=== PATIENT | female | born 1950 | race Caucasian/White ===

== ENCOUNTER → 2016-09-06 | Outpatient (CLI) | payer OTHER ==
[~2016-09-06] MED LIST: BAYER PLUS325 MG PO; HYDROCHLOROTHIA25 MG PO; LOPRESSOR50 MG PO; NORVASC10 MG; NORVASC5 MG PO; OS CAL PO; PRINIVIL10 MG PO; ZOCOR10 MG PO; [UNRECOGNIZED DRUG - OTHER] PO
[2016-09-06 09:57] LABS: EST GLOM FILT AFRICAN AMERICAN > 60 ml/min
== END | disposition home or self-care (01) ==
LOC: LAB 09:20 → CT 10:00
PROVIDERS: Internal Medicine
DX: R22.1 Localized swelling, mass and lump, neck (principal)

== ENCOUNTER → 2017-03-14 | Outpatient (CLI) | payer OTHER ==
[2017-03-14 11:14] LABS: ACT PARTIAL THROMBO TIME 24.7 SECONDS (20.8-31.5)
[2017-03-14 11:27] LABS: BUN 25 mg/dl (7-24); CHLORIDE 108 mmol/L (98-107); POTASSIUM 3.6 mmol/L (3.5-5.1); SODIUM 142 mmol/L (136-145)
== END | disposition home or self-care (01) ==
LOC: SDC 11:00 → EDSTATUS 11:00
PROVIDERS: Internal Medicine
DX: K11.1 Hypertrophy of salivary gland (principal); R79.1 Abnormal coagulation profile

== ENCOUNTER → 2017-06-06 | Outpatient (CLI) | payer OTHER | LOC: ORTHO 02:48 | DX: M16.11 Unilateral primary osteoarthritis, right hip (principal) ==

== ENCOUNTER → 2017-10-30 | Outpatient (CLI) | payer OTHER | END | disposition home or self-care (01) | LOC: MAMMO 08:15 | DX: Z12.31 Encounter for screening mammogram for malignant neoplasm of breast (principal) ==

== ENCOUNTER → 2018-11-04 | Outpatient (CLI) | payer OTHER | END | disposition home or self-care (01) | LOC: US 12:30 | DX: I70.202 Unspecified atherosclerosis of native arteries of extremities, left leg (principal); I10 Essential (primary) hypertension ==

== ENCOUNTER 2019-04-12 09:42 | Inpatient (IN) | payer OTHER ==
[2019-04-12] VITALS (11 sets, daily range): BP systolic 97–138; BP diastolic 68–93
[~2019-04-12] VITALS: Ht 167.6 cm; Wt 78.2 kg
[~2019-04-12 09:42] MED LIST changes: +ASPIR LOW81 MG PO; -BAYER PLUS325 MG PO; -LOPRESSOR50 MG PO; +METOPROLOL SUCC50 M1 PO
[2019-04-12 10:18] LABS: BASO # 0.1 10*3/uL (0.0-0.1); BASO % 0.4 % (0.0-1.0); EOS % 0.2 % (1.0-4.0); HEMATOCRIT 49.2 % (37.0-47.0); HEMOGLOBIN 16.5 g/dl (12.0-16.0); LYMPH # 1.2 10*3/uL (1.3-4.4); LYMPH % 8.8 % (27.0-41.0); MEAN CORPUSCULAR HGB 31.2 pg (27.0-31.0); MEAN CORPUSCULAR HGB CONC 33.5 g/dl (33.0-37.0); MONO # 0.6 10*3/uL (0.1-1.0); MONO % 4.2 % (3.0-9.0); NEUT # 11.9 10*3/uL (2.3-7.9); NEUT % 85.7 % (47.0-73.0); PLATELET COUNT AUTOMATED 268 10*3/uL (130-400); RED BLOOD COUNT 5.29 10*6/uL (4.10-5.10); RED CELL DISTRI WIDTH 14.2 % (0-14.5); WHITE BLOOD COUNT 13.9 10*3/uL (4.8-10.8)
--- NOTE | 2019-04-12 10:20 | NUR ---
IV TO LEFT ARM WOULD NOT FLUSH AND WAS BURNING PT I DC'D AND STARTED A IV IN RFA WITHOUT DIFFICULTY PT TOLERATED WELL.
[2019-04-12 10:24] LABS: ALBUMIN 3.6 gm/dl (3.1-4.5); ALKALINE PHOSPHATASE 83 U/L (45-117); BUN 26 mg/dl (7-24); CHLORIDE 105 mmol/L (98-107); CREATININE 0.96 mg/dL (0.55-1.02); POTASSIUM 3.4 mmol/L (3.5-5.1); SGOT/AST 18 IU/L (3-35); SGPT/ALT 43 U/L (12-78); SODIUM 137 mmol/L (136-145)
--- NOTE | 2019-04-12 10:24 | NUR ---
NOTIFIED BY LAB PTS LACTIC ACID 2.7. CAMPOS BURNETT NOTIFIED.
[2019-04-12 10:25] LABS: TROPONIN I 0.018 ng/ml (<0.045)
--- NOTE | 2019-04-12 10:26 | NUR ---
oxygen bumped up to 4l pulse ox 89-90 on 2 l
--- NOTE | 2019-04-12 10:35 | NUR ---
PT GIVEN URINE CUP AND IS AWARE WE SHAD URINE SAMPLE UNABLE TO PROVIDE ONE AT THIS TIME.
--- NOTE | 2019-04-12 11:02 | NUR ---
CARDIZEM BUMPED UP TO 10MG PT HEART RATE 120
[2019-04-12 11:25] LABS: ACT PARTIAL THROMBO TIME 29.2 SECONDS (20.0-32.1)
--- NOTE | 2019-04-12 11:50 | NUR ---
URINE OBTAINED AND SENT PT RESTING IN BED VOICES NO COMPLAINTS HAS SMALLL EXCORIATED/OPEN AREA TO LEFT UPPER THIGH/LOWER BUTTOCK. DOES NOT WANT IT PHOTOGRAPHED PER PT "ITS FROM MY "[employer]ANTIES" RUBBING IT WILL GO AWAY.
[2019-04-12 11:56] LABS: BILIRUBIN 1+ (NEGATIVE); BLOOD NEGATIVE (NEGATIVE); CLARITY CLOUDY (CLEAR); COLOR YELLOW (YELLOW); GLUCOSE NEGATIVE (NEGATIVE); KETONE NEGATIVE (NEGATIVE); LEUKO ESTERASE NEGATIVE (NEGATIVE); NITRITE NEGATIVE (NEGATIVE); SPECIFIC GRAVITY >= 1.030 (1.005-1.030)
[2019-04-12 12:11] LABS: BACTERIA 2+; MUCOUS 1+
--- NOTE | 2019-04-12 12:42 | NUR ---
PT RESTING IN BED VOICES NO COMPLAINTS CALL LIGHT IN REACH
--- NOTE | 2019-04-12 13:40 | NUR ---
A 68, admitted to 4E, under the services of CAROL Pelletier MD with a diagnosis of PLEURAL EFFUSION RIGHT, AFIB WITH RVR. Chief complaint is SOB. Patient arrived via ambulatory from ER. Monitor applied. Initial assessment completed. Vital signs taken and recorded. CAROL PELLETIER MD notified of admission to the unit. Orders received. See assessment for past medical history, medications and allergies. Patient and/or family oriented to unit. [address] visitation policy reviewed. Clothing/patient valuable form completed. SKIN INTACT RISA MARTINS
--- NOTE | 2019-04-12 13:45 | NUR ---
WA PT FLU AND PNEUMONIA VACCINATIONS ARE CURRENT
[2019-04-12] MEDS ORDERED: DILTIAZEM 24HR180 MG PO (13:49)
[2019-04-12] MEDS ORDERED: ELIQUIS5 M1 PO (13:50)
--- NOTE | 2019-04-12 14:58 | NUR ---
SPOKE TO DR HENNING REGARDING NEW PT CONSULT. ORDERS RECEIVED
--- NOTE | 2019-04-12 15:16 | NUR ---
PTS HOME MEDICATIONS VERIFIED. DR TATUM NOTIFIED
--- NOTE | 2019-04-12 16:40 | NUR ---
PT C/O "ALL OVER SHAKINESS." BP 112/86. HR 70-110 (STILL AFIB). PO2 88% ON 3L O2 NC. TURNED O2 UP TO 4L NC. PO2 WENT UP TO 93%. RESPS 24. DR DOOLEY NOTIFIED. ORDER RECEIVED FOR PO XANAX ONE TIME.
--- NOTE | 2019-04-12 19:00 | NUR ---
ADMINISTERED PO XANAX FOR ANXIETY AND PO NORCO FOR C/O LOWER BACK PAIN RATED 8/10. WILL MONITOR FOR EFFECTIVENESS
--- NOTE | 2019-04-12 22:12 | NUR ---
TITRATED CARDIZEM GTT DOWN TO 5/HR PER PROTOCOL. HR 79 PER CM. BP 131/76, MAP 86. PATIENT DENIES ANY DISCOMFORTS AT THIS TIME. NO S/S OF DISTRESS. CALL LIGHT IN REACH.
[2019-04-13 02:00] VITALS: BP 128/90
[2019-04-13 06:00] VITALS: BP 135/92
[2019-04-13 06:24] LABS: ALBUMIN 3.5 gm/dl (3.1-4.5); CHLORIDE 106 mmol/L (98-107); POTASSIUM 3.7 mmol/L (3.5-5.1); SODIUM 137 mmol/L (136-145)
[2019-04-13 06:31] LABS: ALKALINE PHOSPHATASE 80 U/L (45-117); BUN 25 mg/dl (7-24); CHOLESTEROL 133 mg/dL (<200); CREATININE 0.99 mg/dL (0.55-1.02); FREE T4 1.22 ng/dl (0.76-1.46); HDL CHOLESTEROL 47 mg/dl (40-60); LDL CHOLESTEROL 47 mg/dL (9-159); PHOSPHOROUS 3.1 mg/dL (2.5-4.9); SGOT/AST 15 IU/L (3-35); SGPT/ALT 41 U/L (12-78); TOTAL PROTEIN 6.8 gm/dL (6.4-8.2); TRIGLYCERIDES 197 mg/dl (<150); VLDL CHOLESTEROL 39 mg/dL (6-40)
[2019-04-13 06:42] LABS: BASO # 0.1 10*3/uL (0.0-0.1); BASO % 0.6 % (0.0-1.0); EOS # 0.1 10*3/uL (0.0-0.4); EOS % 0.9 % (1.0-4.0); HEMATOCRIT 48.3 % (37.0-47.0); HEMOGLOBIN 16.1 g/dl (12.0-16.0); LYMPH % 15.9 % (27.0-41.0); MEAN CORPUSCULAR HGB 31.3 pg (27.0-31.0); MEAN CORPUSCULAR HGB CONC 33.3 g/dl (33.0-37.0); MEAN PLATELET VOLUME 10.7 fl (9.6-12.3); MONO # 0.9 10*3/uL (0.1-1.0); MONO % 7.1 % (3.0-9.0); NEUT # 9.5 10*3/uL (2.3-7.9); NEUT % 74.7 % (47.0-73.0); PLATELET COUNT AUTOMATED 267 10*3/uL (130-400); RED BLOOD COUNT 5.14 10*6/uL (4.10-5.10); RED CELL DISTRI WIDTH 14.4 % (0-14.5); WHITE BLOOD COUNT 12.7 10*3/uL (4.8-10.8)
[2019-04-13 07:34] LABS: VITAMIN D, 25-HYDROXY 29.8 ng/mL (30-100)
[2019-04-13 08:00] VITALS: BP 128/80
[2019-04-13 10:00] VITALS: BP 130/90; BP 134/80
--- NOTE | 2019-04-13 10:00 | NUR ---
Account Executive Key Accounts in to talk to patient. Patient states lives at home with her . There are 5 steps in the home. Physician: Dr. Simone Amado [facility] Home health services: none Patient's level of ADLs: INDEPENDENT Patient has working utilities: yes DME: none Follow-up physician's appointment after d/c: she prefers to make her own follow up appt after discharge Does patient want to access PORTAL?: no Discharge plan discussed with patient. is at the bedside. She lives at home with her . She is independent in her ADLs and ambulation. Discussed home health care services and she denies any home needs at this time. When medically stable she will be discharged to home. Her will provide transportation on discharge. ADELINE SULLIVAN
[2019-04-13 11:01] LABS: ABG BASE EXCESS -0.8 mmol/L (-2.0-2.0); ABG HCO3 22.9 mmol/l (22-26); ABG O2 SATURATION 88.8 % (95-97); ARTERIAL BLOOD GAS PCO2 35.5 mmHg (35-45); ARTERIAL BLOOD GAS PH 7.422 (7.35-7.45); ARTERIAL BLOOD GAS PO2 54.6 mmHg (80-90)
[2019-04-13 12:00] VITALS: BP 134/80
[2019-04-13 14:00] VITALS: BP 138/84
--- NOTE | 2019-04-13 15:23 | NUR ---
Spoke to Remi cade [facility] regarding authorization to transfer patient to a high level of care. [facility] Brandy NPI # [id number]. Dr. Aaron Miller NPI # [id number]. ICD 10 I71.01. Ref # [id number]. Notified product steward and Susy at [facility] Med Call.
--- NOTE | 2019-04-13 15:25 | NUR ---
HOME O2 ASSESSMENT: PRE BP: 152/104, RR 108, RR 18, PULSE OX 96% ON ROOM AIR AT REST. AMBULATED PATIENT 2 FAIRLY BRISK LAPS IN HALLWAY, PULSE OX 91%-92% ON ROOM AIR THROUGHOUT AMBULATION. APPEARED TO TOLERATE WELL. POST BP: 145/104, HR 113, RR 20, PULSE OX 95% ON ROOM AIR AT REST. RN NOTIFIED. PATIENT DOES NOT QUALIFY FOR HOME O2.
--- NOTE | 2019-04-13 15:59 | NUR ---
PT LEFT FLOOR VIA STRETCHER IN THE CARE OF [employer] STAFF. PACKET WITH PT. REPORT CALLED TO DOLLY KIMBROUGH AT [facility]
== END 2019-04-13 16:00 | disposition short-term general hospital (02) | DRG 871 ==
LOC: ED 09:42 → 4E 12:56 → EDHOLD 12:56 → 4E 13:23
PROVIDERS: Emergency Medicine; Internal Medicine; Internal Medicine Critical Care Medicine; Nurse Practitioner Family; ADMIT Internal Medicine
DX: A41.9 Sepsis, unspecified organism (principal); J18.9 Pneumonia, unspecified organism; J44.0 Chronic obstructive pulmonary disease with (acute) lower respiratory infection; E66.2 Morbid (severe) obesity with alveolar hypoventilation; J44.1 Chronic obstructive pulmonary disease with (acute) exacerbation; E87.2 Acidosis; E87.1 Hypo-osmolality and hyponatremia; J98.11 Atelectasis; J90 Pleural effusion, not elsewhere classified; R65.20 Severe sepsis without septic shock; I71.2 Thoracic aortic aneurysm, without rupture; L89.891 Pressure ulcer of other site, stage 1; D75.1 Secondary polycythemia; E87.6 Hypokalemia; I48.91 Unspecified atrial fibrillation; Z72.0 Tobacco use; Z90.49 Acquired absence of other specified parts of digestive tract; Z90.710 Acquired absence of both cervix and uterus; Z82.49 Family history of ischemic heart disease and other diseases of the circulatory system; Z79.01 Long term (current) use of anticoagulants; Z79.82 Long term (current) use of aspirin; Z79.899 Other long term (current) drug therapy; Z91.041 Radiographic dye allergy status; Z82.3 Family history of stroke; Z83.3 Family history of diabetes mellitus; R73.9 Hyperglycemia, unspecified; R80.9 Proteinuria, unspecified; Z68.27 Body mass index [BMI] 27.0-27.9, adult; I11.9 Hypertensive heart disease without heart failure

== ENCOUNTER 2019-04-23 18:39 | Inpatient (IN) | payer OTHER ==
[~2019-04-23] VITALS: Ht 167.6 cm; Wt 77.6 kg
--- NOTE | ~2019-04-23 | EKG ---
[place], [place] ELECTROCARDIOGRAM REPORT NAME: LASHON SPENCER UNIT #: [id number] ROOM: 403 DOCTOR: KATRIN DRAFT REPORT BIRTHDATE: [birth year] [facility] Test Date: 2019-04-23 Test Time: 19:31:45 Pat Name: LASHON SPENCER Department: Room: 403 Gender: F Edi Architect: SS RESP : 1950 Requested By: ABEBE RIOS DNP Order Number: [id number] Reading MD: Fantasma Garcia MD Measurements Intervals [place] Rate: 79 P: [place]: QRS: 64 QRSD: 99 T: 206 QT: 346 QTc: 397 Interpretive Statements Atrial fibrillation Repol abnrm suggests inferior and lateral ischemia, lateral leads Possible digoxin effect Compared to ECG 04/12/2019 15:30:53 Early repolarization now present Possible ischemia now present Electronically Signed On 05-02-2019 5:27:23 PST by Fantasma Garcia MD CM:EKGRPT:ELECTROCARDIOGRAM REPORT 30 0527 ABEBE RIOS DNP EPIPHANY DRAFT REPORT ABEBE RIOS DNP
[~2019-04-23 18:39] MED LIST changes: +DILTIAZEM 24HR180 MG PO; +ELIQUIS5 M1 PO
[2019-04-23 18:40] VITALS: BP 134/73
[2019-04-23 19:13] LABS: BASO # 0.1 10*3/uL (0.0-0.1); BASO % 0.5 % (0.0-1.0); EOS # 0.4 10*3/uL (0.0-0.4); EOS % 3.6 % (1.0-4.0); HEMATOCRIT 49.2 % (37.0-47.0); HEMOGLOBIN 16.2 g/dl (12.0-16.0); LYMPH # 1.7 10*3/uL (1.3-4.4); LYMPH % 15.7 % (27.0-41.0); MEAN CELL VOLUME 93.7 fl (81.0-99.0); MEAN CORPUSCULAR HGB 30.9 pg (27.0-31.0); MEAN CORPUSCULAR HGB CONC 32.9 g/dl (33.0-37.0); MONO # 0.9 10*3/uL (0.1-1.0); MONO % 8.3 % (3.0-9.0); NEUT # 7.8 10*3/uL (2.3-7.9); NEUT % 71.3 % (47.0-73.0); PLATELET COUNT AUTOMATED 242 10*3/uL (130-400); RED BLOOD COUNT 5.25 10*6/uL (4.10-5.10)
[2019-04-23 19:24] LABS: ACT PARTIAL THROMBO TIME 27.4 SECONDS (20.0-32.1)
[2019-04-23 19:30] VITALS: BP 142/95
[2019-04-23 19:35] LABS: ALBUMIN 3.2 gm/dl (3.1-4.5); ALKALINE PHOSPHATASE 101 U/L (45-117); BUN 29 mg/dl (7-24); CHLORIDE 110 mmol/L (98-107); CREATININE 1.05 mg/dL (0.55-1.02); LIPASE 126 U/L (73-393); POTASSIUM 3.9 mmol/L (3.5-5.1); SGOT/AST 13 IU/L (3-35); SGPT/ALT 23 U/L (12-78); SODIUM 141 mmol/L (136-145); TOTAL PROTEIN 6.6 gm/dL (6.4-8.2)
[2019-04-23 19:37] LABS: TROPONIN I < 0.015 ng/ml (<0.045)
[2019-04-23 20:00] VITALS: BP 135/102
[2019-04-23 20:30] VITALS: BP 158/98
[2019-04-23 21:00] VITALS: BP 133/80
[2019-04-23 21:40] VITALS: BP 152/91
--- NOTE | 2019-04-23 21:40 | NUR ---
A 68, admitted to , under the services of CAROL Pelletier MD with a diagnosis of AFIB, DYSPNEA, SUBTHERPEUTIC. Chief complaint is RASH. Patient arrived via bed from ER. Monitor applied. Initial assessment completed. Vital signs taken and recorded. CAROL PELLETIER MD notified of admission to the unit. Orders received. See assessment for past medical history, medications and allergies. Patient and/or family oriented to unit. [address] visitation policy reviewed. Clothing/patient valuable form completed. ALEXIS URBINA
--- NOTE | 2019-04-23 22:10 | NUR ---
PT STILL HAS RED BLOTCHY RASH COVERING BODY EXCLUDING FACE. PT NOT C/O ITCHING OR ANY OTHER DISTRESS AT THIS TIME.
[2019-04-24] VITALS: BP 164/97
--- NOTE | 2019-04-24 02:41 | NUR ---
DR REYNOLDS NOTIFIED OF CRITICAL PTT
--- NOTE | 2019-04-24 02:45 | NUR ---
PT'S HEPARIN DRIP HELD PER ORDER.
--- NOTE | 2019-04-24 03:45 | NUR ---
HEPARIN DRIP REINITIATED PER ORDER. NOW RUNNING AT 15 UNITS/ 11ML/ HR
--- NOTE | 2019-04-24 07:21 | NUR ---
24 HR chart check completed.
[2019-04-24 08:00] VITALS: BP 148/82
[2019-04-24 08:27] LABS: ACT PARTIAL THROMBO TIME 49.7 SECONDS (20.0-32.1)
--- NOTE | 2019-04-24 09:00 | NUR ---
SITTING IN BED WATCHING TV WITH NO DISTRESS NOTED. RESPIRATIONS EASY. LUNGS DIMINISHED, CLEAR. PULSE OX 94% RA. INFREQUENT COUGH. HEPARIN DRIP INFUSING PER ORDER. CALL LIGHT WITHIN REACH. NO VOICED COMPLAINTS
[2019-04-24] MEDS ORDERED: CARTIA XT240 MG PO (10:01)
[2019-04-24] MEDS ORDERED: BISOPROLOL FUMA10 MG PO (10:02)
[2019-04-24] MEDS ORDERED: BREO ELLIPTA 11 EACH INH (10:02)
[2019-04-24] MEDS ORDERED: PROAIR HFA8.5 GM INH (10:02)
[2019-04-24] MEDS ORDERED: LOSARTAN POTASS50 M1 PO (10:02)
[2019-04-24] MEDS ORDERED: DIGITEK125 MCG PO (10:03)
--- NOTE | 2019-04-24 11:15 | NUR ---
AMBULATING HALLWAY WITH . NO DISTRESS NOTED
[2019-04-24 12:00] VITALS: BP 141/94
--- NOTE | 2019-04-24 13:00 | NUR ---
RESTING IN BED WITH EYES CLOSED. RESPIRATIONS EASY. HEPARIN DRIP MAINTAINED.
[2019-04-24 16:00] VITALS: BP 136/83
--- NOTE | 2019-04-24 18:23 | NUR ---
REQUESTED AND RECEIVED TYLENOL PER PRN ORDER FOR COMPLAINTS OF HEADACHE RATING A 5. CALL LIGHT WITHIN REACH. WILL MONITOR FOR EFFECTIVENESS
--- NOTE | 2019-04-24 19:10 | NUR ---
AMBULATING HALLWAY WITH . NO DISTRESS NOTED. NO VOICED COMPLAINTS.
[2019-04-24 20:00] VITALS: BP 158/95
[2019-04-25] VITALS: BP 143/71
[2019-04-25 06:15] LABS: HEMATOCRIT 47.4 % (37.0-47.0); HEMOGLOBIN 15.4 g/dl (12.0-16.0); MEAN CORPUSCULAR HGB 30.9 pg (27.0-31.0); MEAN CORPUSCULAR HGB CONC 32.5 g/dl (33.0-37.0); MEAN PLATELET VOLUME 10.6 fl (9.6-12.3); PLATELET COUNT AUTOMATED 253 10*3/uL (130-400); RED BLOOD COUNT 4.99 10*6/uL (4.10-5.10)
[2019-04-25 06:21] LABS: BUN 21 mg/dl (7-24); CHLORIDE 111 mmol/L (98-107); CREATININE 0.84 mg/dL (0.55-1.02); POTASSIUM 3.3 mmol/L (3.5-5.1); SODIUM 141 mmol/L (136-145)
[2019-04-25 06:29] LABS: INTERNATIONAL NORM RATIO 1.6 (2.0-3.5)
[2019-04-25 06:32] LABS: ACT PARTIAL THROMBO TIME 94.1 SECONDS (20.0-32.1)
--- NOTE | 2019-04-25 06:35 | NUR ---
ATTEMPTED TO CALL RESIDENT REGARDING CRITICAL APTT RESULT. AWAITING CALL BACK. HEPARIN GTT CURRENTLY ON HOLD.
--- NOTE | 2019-04-25 06:38 | NUR ---
DR REYNOLDS NOTIFIED OF CRITICAL LAB RESULT.
--- NOTE | 2019-04-25 07:20 | NUR ---
24 HR chart check completed.
[2019-04-25 07:23] LABS: PLATELET SUFFICIENCY NORMAL (NORMAL); TOTAL CELLS COUNTED 100 #CELLS
[2019-04-25 08:00] VITALS: BP 150/88
--- NOTE | 2019-04-25 08:04 | NUR ---
RESTING IN BED WITH NO DISTRESS NOTED. RESPIRATIONS EASY. LUNGS DIMINISHED, CLEAR. PULSE OX 96% RA. INFREQUENT COUGH. MEDICATED WITH NORCO PER PRN ORDER FOR C/O HEADACHE RATING AN 8. RASH NOTED TO TORSO. HEPARIN INFUSING PER ORDER. CALL LIGHT WITHIN REACH
--- NOTE | 2019-04-25 09:00 | NUR ---
SITTING AT BEDSIDE EATING. STATES RELIEF FROM EARLIER NORCO. CAR LIGHT WITHIN REACH. NO FURTHER VOICED COMPLAINTS
--- NOTE | 2019-04-25 11:00 | NUR ---
AMBULATING HALLWAY WITH . NO DISTRESS NOTED
[2019-04-25 12:00] VITALS: BP 155/90
--- NOTE | 2019-04-25 13:00 | NUR ---
AMBULATING HALLWAY WITH
[2019-04-25 16:00] VITALS: BP 146/55
--- NOTE | 2019-04-25 16:16 | NUR ---
REQUESTED AND RECEIVED TYLENOL PER PRN ORDER FOR COMPLAINTS OF HEADACHE RATING A 5. CALL LIGHT WITHIN REACH. YEYO MONITOR FOR EFFECTIVENESS
--- NOTE | 2019-04-25 17:00 | NUR ---
STATES RELIEF FROM EARLIER TYLENOL. RESPIRATIONS EASY. HEPARIN DRIP MAINTAINED. CALL LIGHT WITHIN REACH. NO FURTHER VOICED COMPLAINTS
[2019-04-25 20:00] VITALS: BP 154/95
--- NOTE | 2019-04-25 20:15 | NUR ---
PT C/O HEADACHE, RATES PAIN 6 ON PAIN SCALE 0-10. MEDICATED WITH TYLENOL PO PER PRN ORDER, SEE MAR. TOLERATED ROUTINE MED WITH NO PROBLEM. CALL LIGHT IN REACH. SEE SHIFT ASSESSMENT.
[2019-04-25 20:19] VITALS: BP 150/86
--- NOTE | 2019-04-25 21:10 | NUR ---
PT RESTING IN BED. STATES PAIN MEDICATION IS HELPING. CALL LIGHT IN REACH.
[2019-04-26] VITALS: BP 148/90
--- NOTE | 2019-04-26 | NUR ---
PT RESTING IN BED. HEPARIN INFUSING WITH NO PROBLEM. NO C/O AT THIS TIME. PT AMBULATORY TO BATHROOM AND BACK TO BED. CALL LIGHT IN REACH. SEE SHIFT ASSESSMENT.
--- NOTE | 2019-04-26 03:30 | NUR ---
IV started right forearm with #22 angiocath after 1 attempts. The IV site was prepped with Chloraprep. Heparin lock attached. Sterile dressing applied. Patient tolerated precedure well. Procedure performed according to [facility] policy & procedure. PT PULLED IV SITE OUT WHILE SLEEPING TO LEFT AC. BLODD IN PT AND BED. SITE STOPPED BLEEDING. PT CLEANED UP AND BED CHANGED. HEPARIN INFUSING IN LEFT HAND. CALL LIGHT IN REACH. SARINA HUGHES R
--- NOTE | 2019-04-26 05:35 | NUR ---
PT C/O HEADACHE STATES SHE IS SHORT OF BREATH. PULSE OX 94%RA. RESPIRATORY ON THE FLOOR TO DO BREATHING TX. MEDICATED WITH NORCO PO PER PRN ORDER, SEE EMAR. CALL LIGHT IN REACH.
[2019-04-26 06:00] LABS: HEMATOCRIT 48.9 % (37.0-47.0); HEMOGLOBIN 16.1 g/dl (12.0-16.0); MEAN CELL VOLUME 92.6 fl (81.0-99.0); MEAN CORPUSCULAR HGB 30.5 pg (27.0-31.0); MEAN CORPUSCULAR HGB CONC 32.9 g/dl (33.0-37.0); MEAN PLATELET VOLUME 10.3 fl (9.6-12.3); PLATELET COUNT AUTOMATED 258 10*3/uL (130-400); RED BLOOD COUNT 5.28 10*6/uL (4.10-5.10); WHITE BLOOD COUNT 21.3 10*3/uL (4.8-10.8)
[2019-04-26 06:19] LABS: BUN 25 mg/dl (7-24); CHLORIDE 108 mmol/L (98-107); CREATININE 0.86 mg/dL (0.55-1.02); POTASSIUM 3.3 mmol/L (3.5-5.1); SODIUM 141 mmol/L (136-145)
--- NOTE | 2019-04-26 06:30 | NUR ---
SITTING UP AT SIDE OF BED. RESP-EASY AND REGULAR. MEDICATGINO EFFECTIVE. CALL LIGHT IN REACH.
[2019-04-26 08:00] VITALS: BP 162/100
[2019-04-26 08:09] LABS: TOTAL CELLS COUNTED 100 #CELLS
[2019-04-26 08:10] LABS: PLATELET SUFFICIENCY NORMAL (NORMAL)
--- NOTE | 2019-04-26 10:00 | NUR ---
LEFT ANTECUBITAR BLEEDING WHERE IV WAS REMOVED ON RESEARCH SPECIALIST. COMPRESSION DRESSING APPLIED AT THE SITE. PT DENIES ANY OTHER NEEDS. CALL LIGHT IN REACH.
--- NOTE | 2019-04-26 10:30 | NUR ---
Marine Consultant in to talk to patient. Patient states lives at home with her . There are 5 steps in the home. Physician: Dr. Simone Amado [facility] Home health services: none Patient's level of ADLs: INDEPENDENT Patient has working utilities: yes DME: O2 @ 4L [place] at [place], O2 supplier [employer] Follow-up physician's appointment after d/c: she prefers to make her own follow up appt after discharge Does patient want to access PORTAL?: no Discharge plan discussed with patient. is at the bedside. She lives at home with her . She is independent in her ADLs and ambulation. Discussed home health care services and she denies any home needs at this time. When medically stable she will be discharged to home. Her will provide transportation on discharge. ADELINE SULLIVAN
[2019-04-26 11:50] VITALS: BP 160/100
--- NOTE | 2019-04-26 11:50 | NUR ---
CALLED 'S OFFICE FOR ACCURATE MED LIST BECAUSE PATIENT STATES THAT SHE TAKES HCTZ & NORVASC NORMALLY. WAITING ON OFFICE TO FAX LIST. NOTIFIED THAT PATIENT'S BP IS ELEVATED 160/100.
[2019-04-26 16:00] VITALS: BP 147/94
--- NOTE | 2019-04-26 19:52 | NUR ---
24 HR chart check completed.
[2019-04-26 20:00] VITALS: BP 142/90; BP 147/94
--- NOTE | 2019-04-26 21:00 | NUR ---
RESTING IN BED. RESPIRATIONS EASY. LUNGS DIMINISHED, CLEAR. PULSE OX 93% RA, O2 PRESENT AT BEDSIDE FOR PRN USE. INFREQUENT COUGH. DRESSING CHANGED TO LAC SITE CONTINUES TO BLEED - PRESSURE DRESSING APPLIED. +1 PITTING BLE EDEMA. HEPARIN INFUSING PER ORDER. CALL LIGHT WITHIN REACH. NO VOICED COMPLAINTS
[2019-04-27] VITALS: BP 150/92
--- NOTE | 2019-04-27 | NUR ---
SITTING AT BEDSIDE PLAYING ON IPAD. NO DISTRESS NOTED. RESPIRATIONS EASY. HEPARIN MAINTAINED. CALL LIGHT WITHIN REACH. NO VOICED COMPLAINTS
--- NOTE | 2019-04-27 01:00 | NUR ---
SLEEPING. NO DISTRESS NOTED. RESPIRATIONS EASY.
--- NOTE | 2019-04-27 06:00 | NUR ---
RESTED THROUGHOUT NIGHT WITH NO DISTRESS NOTED. RESPIRATIONS EASY. HEPARIN MAINTAINED. CALL LIGHT WITHIN REACH. NO VOICED COMPLAINTS THIS SHIFT
[2019-04-27 06:11] LABS: HEMATOCRIT 48.5 % (37.0-47.0); HEMOGLOBIN 16.1 g/dl (12.0-16.0); MEAN CORPUSCULAR HGB 30.6 pg (27.0-31.0); MEAN CORPUSCULAR HGB CONC 33.2 g/dl (33.0-37.0); MEAN PLATELET VOLUME 10.3 fl (9.6-12.3); PLATELET COUNT AUTOMATED 269 10*3/uL (130-400); RED BLOOD COUNT 5.27 10*6/uL (4.10-5.10); WHITE BLOOD COUNT 21.7 10*3/uL (4.8-10.8)
[2019-04-27 06:14] LABS: BUN 27 mg/dl (7-24); CHLORIDE 105 mmol/L (98-107); CREATININE 0.88 mg/dL (0.55-1.02); POTASSIUM 3.4 mmol/L (3.5-5.1); SODIUM 138 mmol/L (136-145)
[2019-04-27 06:41] LABS: INTERNATIONAL NORM RATIO 4.5 (2.0-3.5)
[2019-04-27 06:44] LABS: ACT PARTIAL THROMBO TIME 78.3 SECONDS (20.0-32.1)
--- NOTE | 2019-04-27 06:45 | NUR ---
HEPARIN DRIP ADJUSTED PER PROTOCOL
[2019-04-27 07:23] LABS: PLATELET SUFFICIENCY NORMAL (NORMAL); TOTAL CELLS COUNTED 100 #CELLS
--- NOTE | 2019-04-27 07:43 | NUR ---
DR CALIX CALLED WITH INR & PTT RESULTS. ORDERS TO STOP HEPARIN & COUMADIN
[2019-04-27 08:00] VITALS: BP 140/90
[2019-04-27 08:01] VITALS: BP 150/60
--- NOTE | 2019-04-27 09:29 | NUR ---
Shift chart check completed.
--- NOTE | 2019-04-27 09:50 | NUR ---
DR HARGROVE HERE AND SEEING THE PATIENT FOR DR DOOLEY. OK TO DISCHARGE HOME - WILL TAKE 3 MG TOMORROW THEN SEE DR DOOLEY 04/30/19
--- NOTE | 2019-04-27 11:31 | NUR ---
AMBULATING IN COATS WITHOUT DIFFICULTY. AWAITING DISCHARGE ORDERS
[2019-04-27] MEDS ORDERED: METOPROLOL TART50 M1 PO (11:52)
[2019-04-27] MEDS ORDERED: WARFARIN SOD2 MG PO (11:52)
[2019-04-27] MEDS ORDERED: MEDROL DOSEPAK4 MG PO (11:52)
--- NOTE | 2019-04-27 12:38 | NUR ---
Discharge instructions reviewed with patient/family. Patient receptive and verbalizes understanding. Follow-up care arranged. Written instructions given to patient/family. Hep Lock discontinued. Site asymptomatic. Pressure applied. Sterile dressing applied. ALBINO WHYTE
--- NOTE | 2019-04-27 13:08 | NUR ---
TAKEN OUT WITH BELONGINGS & DC INSTRUCTIONS
== END 2019-04-27 13:08 | disposition home or self-care (01) | DRG 607 ==
LOC: ED 18:39 → EDHOLD 19:52 → 4E 19:52
PROVIDERS: Internal Medicine Nephrology; Nurse Practitioner Family; Student in an Organized Health Care Education/Training Program; ADMIT Internal Medicine
DX: L27.0 Generalized skin eruption due to drugs and medicaments taken internally (principal); N17.9 Acute kidney failure, unspecified; E44.0 Moderate protein-calorie malnutrition; I82.90 Acute embolism and thrombosis of unspecified vein; I48.21 Permanent atrial fibrillation; D75.1 Secondary polycythemia; F17.200 Nicotine dependence, unspecified, uncomplicated; E87.8 Other disorders of electrolyte and fluid balance, not elsewhere classified; N18.3 Chronic kidney disease, stage 3 (moderate); R73.9 Hyperglycemia, unspecified; E66.3 Overweight; I12.9 Hypertensive chronic kidney disease with stage 1 through stage 4 chronic kidney disease, or unspecified chronic kidney disease; K42.9 Umbilical hernia without obstruction or gangrene; I71.2 Thoracic aortic aneurysm, without rupture; E87.6 Hypokalemia; D72.829 Elevated white blood cell count, unspecified; N28.1 Cyst of kidney, acquired; J44.9 Chronic obstructive pulmonary disease, unspecified; F32.9 Major depressive disorder, single episode, unspecified; F41.9 Anxiety disorder, unspecified; T50.995A Adverse effect of other drugs, medicaments and biological substances, initial encounter; Y92.89 Other specified places as the place of occurrence of the external cause; Z90.89 Acquired absence of other organs; Z90.49 Acquired absence of other specified parts of digestive tract; Z90.710 Acquired absence of both cervix and uterus; Z88.8 Allergy status to other drugs, medicaments and biological substances; Z91.041 Radiographic dye allergy status; Z91.040 Latex allergy status; Z79.899 Other long term (current) drug therapy; Z79.82 Long term (current) use of aspirin; Z79.01 Long term (current) use of anticoagulants; Z71.6 Tobacco abuse counseling; Z68.27 Body mass index [BMI] 27.0-27.9, adult; Z82.49 Family history of ischemic heart disease and other diseases of the circulatory system; Z84.89 Family history of other specified conditions; Z83.3 Family history of diabetes mellitus; Z82.3 Family history of stroke

== ENCOUNTER 2019-05-18 14:48 | Inpatient (IN) | payer OTHER ==
[~2019-05-18] VITALS: Ht 167.6 cm; Wt 67.6 kg
[~2019-05-18 14:48] MED LIST changes: +BISOPROLOL FUMA10 MG PO; +BREO ELLIPTA 11 EACH INH; +CARTIA XT240 MG PO; +DIGITEK125 MCG PO; +LOSARTAN POTASS50 M1 PO; +MEDROL DOSEPAK4 MG PO; +METOPROLOL TART50 M1 PO; +PROAIR HFA8.5 GM INH; +WARFARIN SOD2 MG PO
--- NOTE | 2019-05-18 15:04 | NUR ---
A 68 yr old female, direct admitted to ICCU, under the services of Dr. SOUMYA MCLEAN,[facility] with a diagnosis of Atrial fib and RVR. Chief complaint is fast heart rate in Dr Amado's office today. Patient arrived via wheel chair from admitting office. Monitor applied HR 160's and BP 82 systolic with Doppler. Initial assessment completed. Vital signs taken and recorded. See assessment for past medical history, medications and allergies. Patient and/or family oriented to unit. [facility]U visitation policy reviewed. Clothing/patient valuable form completed. Two IV sites obtained in left arm. #22 x 2. TA MURPHY
[2019-05-18 15:05] VITALS: BP 82/0
[2019-05-18 15:50] LABS: BASO % 0.5 % (0.0-1.0); EOS # 0.1 10*3/uL (0.0-0.4); EOS % 0.8 % (1.0-4.0); HEMATOCRIT 43.4 % (37.0-47.0); HEMOGLOBIN 14.7 g/dl (12.0-16.0); LYMPH # 1.8 10*3/uL (1.3-4.4); MEAN CORPUSCULAR HGB 30.8 pg (27.0-31.0); MEAN CORPUSCULAR HGB CONC 33.9 g/dl (33.0-37.0); MEAN PLATELET VOLUME 10.1 fl (9.6-12.3); MONO # 0.8 10*3/uL (0.1-1.0); MONO % 10.6 % (3.0-9.0); NEUT # 4.9 10*3/uL (2.3-7.9); NEUT % 64.7 % (47.0-73.0); PLATELET COUNT AUTOMATED 248 10*3/uL (130-400); RED BLOOD COUNT 4.77 10*6/uL (4.10-5.10); RED CELL DISTRI WIDTH 13.4 % (0-14.5); WHITE BLOOD COUNT 7.6 10*3/uL (4.8-10.8)
[2019-05-18 16:00] VITALS: BP 100/59; BP 104/61
[2019-05-18 16:12] LABS: ALBUMIN 3.1 gm/dl (3.1-4.5); ALKALINE PHOSPHATASE 80 U/L (45-117); BUN 18 mg/dl (7-24); CHLORIDE 102 mmol/L (98-107); CREATININE 1.07 mg/dL (0.55-1.02); SGOT/AST 13 IU/L (3-35); SGPT/ALT 19 U/L (12-78); SODIUM 136 mmol/L (136-145); TOTAL PROTEIN 6.4 gm/dL (6.4-8.2)
[2019-05-18 16:13] LABS: TROPONIN I < 0.015 ng/ml (<0.045)
[2019-05-18 16:15] VITALS: BP 106/68
[2019-05-18] MEDS ORDERED: METOPROLOL SUCC50 M1 PO (17:01)
[2019-05-18] MEDS ORDERED: HYDROCHLOROTHIA25 M1 PO (17:02)
[2019-05-18] MEDS ORDERED: AMLODIPINE BESY10 MG PO (17:03)
[2019-05-18] MEDS ORDERED: ATORVASTATIN CA40 M1 PO (17:04)
[2019-05-18] MEDS ORDERED: COUMADIN5 M2 PO (17:09)
[2019-05-18] MEDS ORDERED: Coumadin5 MG PO (17:10)
--- NOTE | 2019-05-18 17:11 | NUR ---
DR HONEYCUTT NOTIFIED OF NEW CONSULT. REVIEWED MEDS/HR/VS WITH HIM. ORDERS RECEIVED.
[2019-05-18 17:30] VITALS: BP 90/47
[2019-05-18 17:40] LABS: BILIRUBIN NEGATIVE (NEGATIVE); BLOOD NEGATIVE (NEGATIVE); CLARITY SL CLOUDY (CLEAR); COLOR YELLOW (YELLOW); GLUCOSE NEGATIVE (NEGATIVE); KETONE NEGATIVE (NEGATIVE); LEUKO ESTERASE NEGATIVE (NEGATIVE); NITRITE NEGATIVE (NEGATIVE); SPECIFIC GRAVITY <= 1.005 (1.005-1.030); UROBILINOGEN 0.2 E.U./dl (0.2-1.0)
--- NOTE | 2019-05-18 17:48 | NUR ---
HR REMAINS >130'S IN SPITE OF CARDIZEM INCREASE TO 10MG/HR. 500CC FLUID BOLUS WAS GIVEN AND SALINE INFUSING 110/HR. PT SITTING AT THE SIDE OF THE BED EATING DINNER. SKIN WARM AND DRY.
[2019-05-18 17:49] LABS: BACTERIA 2+; EPITHELIAL CELLS 20-25
--- NOTE | 2019-05-18 17:55 | NUR ---
WENT HOME AND BROUGHT PT'S MEDICATION BOTTLES IN. SHE SEPERATED THEM ALL AND GAVE ME THE ACTUAL BOTTLES OF WHAT SHE IS TAKING. THE MED REC FORMS REFLECTS THESE MEDS.
[2019-05-18 18:27] LABS: INTERNATIONAL NORM RATIO 1.7 (2.0-3.5)
[2019-05-18 20:00] VITALS: BP 96/52
--- NOTE | 2019-05-18 20:42 | NUR ---
1930 RESTING IN BED ON LEFT SIDE. HOB ELEVATED. CALL LIGHT IN REACH. PULSE OX 96% ON 3L 02 VIA NC. CARDIZEM GTT CONT AT 10MG. SAEE INTERVENTION SCREEN FOR Q2H BP'S. NO DISTRESS NOTED. NO C/O'S PAIN OR DISCOMFOT VOICED.
[2019-05-18 22:00] VITALS: BP 100/50
--- NOTE | 2019-05-18 22:11 | NUR ---
RESTING IN BED WITH EYES CLOSED. APPEARS TO BE SLEEPING.
[2019-05-19] VITALS (25 sets, daily range): BP systolic 82–145; BP diastolic 35–100
--- NOTE | 2019-05-19 00:29 | NUR ---
CARDIZEM GTT AT 5MG. MONITOR REMAINS A-FIB
--- NOTE | 2019-05-19 02:09 | NUR ---
REMAINS SLEEPING WITHOUT DISTRESS.
[2019-05-19 05:04] LABS: BASO % 0.5 % (0.0-1.0); EOS # 0.2 10*3/uL (0.0-0.4); EOS % 2.3 % (1.0-4.0); HEMATOCRIT 43.5 % (37.0-47.0); HEMOGLOBIN 14.3 g/dl (12.0-16.0); LYMPH # 1.4 10*3/uL (1.3-4.4); LYMPH % 19.3 % (27.0-41.0); MEAN CELL VOLUME 92.8 fl (81.0-99.0); MEAN CORPUSCULAR HGB 30.5 pg (27.0-31.0); MEAN CORPUSCULAR HGB CONC 32.9 g/dl (33.0-37.0); MEAN PLATELET VOLUME 10.4 fl (9.6-12.3); MONO # 0.8 10*3/uL (0.1-1.0); MONO % 10.9 % (3.0-9.0); NEUT # 4.9 10*3/uL (2.3-7.9); NEUT % 66.5 % (47.0-73.0); PLATELET COUNT AUTOMATED 229 10*3/uL (130-400); RED BLOOD COUNT 4.69 10*6/uL (4.10-5.10); RED CELL DISTRI WIDTH 13.6 % (0-14.5); WHITE BLOOD COUNT 7.4 10*3/uL (4.8-10.8)
[2019-05-19 05:19] LABS: INTERNATIONAL NORM RATIO 1.8 (2.0-3.5)
[2019-05-19 05:30] LABS: BUN 15 mg/dl (7-24); CHLORIDE 107 mmol/L (98-107); CREATININE 0.87 mg/dL (0.55-1.02); POTASSIUM 3.1 mmol/L (3.5-5.1); SODIUM 140 mmol/L (136-145)
--- NOTE | 2019-05-19 06:12 | NUR ---
MONITOR REMAINS A-FIB. HR ELEVATED WITH ANY ACTIVITY. VR FROM 100-120'S. CARDIZEM GTT CONT AT 10MG. 02 INTACT. CONDITION GUARDED.
--- NOTE | 2019-05-19 07:32 | NUR ---
Shift chart check completed.
--- NOTE | 2019-05-19 10:51 | NUR ---
News Librarian in to talk to patient. Patient states lives at home with her . There are 2 steps in the home. Physician: Dr. 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 She lives at home with her . She is independent in her ADLs and ambulation. Discussed home health care services and she denies any home needs at this time. When medically stable she will be discharged to home. Her will provide transportation on discharge. ADELINE SULLIVAN
--- NOTE | 2019-05-19 12:19 | NUR ---
DR HONEYCUTT HERE AND EXAMINE PATIENT - PATIENT TOLD THAT SHE WOULD NEED TO STAY (HIS RECOMMENDATION) UNTIL HER HEART RATE WAS UNDER CONTROL SINCE SHE IS STILL JUMPING WITH MINIMAL ACTIVITY
--- NOTE | 2019-05-19 12:35 | NUR ---
IV LOPRESSOR GIVEN AFTER IV DIGOXIN PER ORDERS. PT VOICED UNDERSTANDING OF IMPORTANCE OF STAYING DESPITE HER DISAPPOINTMENT SHE WILL STAY
--- NOTE | 2019-05-19 14:20 | NUR ---
DR KIRKLAND CALLED WITH ANXIETY & ELEVATED HEART RATE. OK TO GIVE XANAX PO X1 DOSE. CARDIZEM DRIP INCREASED TO 15mg/hr
--- NOTE | 2019-05-19 14:57 | NUR ---
DR HONEYCUTT CALLED WITH CONTINUED ELEVATED HR AND ANXIETY. INFORMED THAT CARDIZEM DRIP IS NOW AT 20 mg/hr AND HR IS SUSTAINED AT 130-160. BP 122/82 MANUAL. PULSE OX 82% ON NC3L CHANGED TO VENTURI AND NOW RESP THERAPY HAS HER ON A NONREBREATHER.
[2019-05-19 15:49] LABS: ABG BASE EXCESS -4.1 mmol/L (-2.0-2.0); ABG HCO3 20.6 mmol/l (22-26); ABG O2 SATURATION 86.7 % (95-97); ARTERIAL BLOOD GAS PCO2 37.8 mmHg (35-45); ARTERIAL BLOOD GAS PH 7.353 (7.35-7.45); ARTERIAL BLOOD GAS PO2 55.4 mmHg (80-90)
--- NOTE | 2019-05-19 16:24 | NUR ---
DR HARGROVE CALLED ABOUT ABG RESULTS & INABILITY TO MAINTAIN PULSE OX ON 15L HIGH FLOW NASAL CANNULA. ORDERS RECEIVED. IV started left antecubital with #18 protective cath after 1 attempts. Site prepped with Chloroprep. Sterile dressing applied. Patient tolerated procedure well. ALBINO WHYTE
--- NOTE | 2019-05-19 16:30 | NUR ---
PLACED PATIENT ON OPTIFLOW 80%O2/50L. SPO2 92%. PATIENT RESTING COMFORTABLY. WILL CONTINUE TO MONITOR
--- NOTE | 2019-05-19 17:27 | NUR ---
SPOKE WITH DR DOLOEY & DR HARGROVE ABOUT ALLERGY - ORDERS RECEIVED.
[2019-05-19 17:47] LABS: ACT PARTIAL THROMBO TIME 34.5 SECONDS (20.0-32.1); INTERNATIONAL NORM RATIO 2.4 (2.0-3.5)
--- NOTE | 2019-05-19 18:33 | NUR ---
IV DIG GIVEN PER ORDERS AFTER HR JUMPED 20 POINTS WITH SITTING UP TO EAT.
--- NOTE | 2019-05-19 19:16 | NUR ---
DR HONEYCUTT HERE AND AWARE OF HEART RATE - LOW SATS MAY BE DUE TO FLUID - IV LASIX ORDERED
--- NOTE | 2019-05-19 20:09 | NUR ---
1929 IV LASIX GIVEN ORDERD. RESTING IN BED WITH HOB ELEVATED. SIDE RAILS UP X'S 2. CALL LIGHT IN REACH. OPTIFLOW INTACT AT 95%. PULSE OX 95% WHEN RESTING. IV FLUIDS AND CARDIZEM GTT CONT. HEP LOCK INTACT MAYURI. NO C/O'S VOICED. STATES " I ALMOST EARLIER TODAY." REASSURANCE GIVEN. 1999 STARTING TO DIURESE FROM IV LASIX. UP TO BSC. X'S 2 WITH ASSIST. PHAN. HR IN THE 80-90'S WHEN RESTING. UP TO 110 WITH ACITIVTY. WILL CONT TO MONITOR.
--- NOTE | 2019-05-19 22:13 | NUR ---
RESTING IN BED WITH EYES CLOSED. MONITOR REMAINS A-FIB IN THE 80'S. Q2H BP'S CONT. SEE INTERVENTION SCREEN.
[2019-05-20] VITALS (12 sets, daily range): BP systolic 96–130; BP diastolic 54–81
--- NOTE | 2019-05-20 01:04 | NUR ---
0045 INCONTINENT OF LARGE AMOUNT URINE. UP TO [facility] TO VOID. LINENS CHANGED. BATH TAKEN WITH ASSIST. TOLERATED WELL.
--- NOTE | 2019-05-20 02:05 | NUR ---
0145 PULSE OX 88% ON 70%/50L. RESPIRATIONS EASY. HR IN THE 80'S. NO DISTRESS NOTED. RESPIRATORY THERAPY BEEPED. 0155 RESPIRATORY THERAPY HERE AND INCREASED 02 TO 93%/55L. PULSE OX 90%. PT REMAINS SLEEPING WITH NO DISTRESS NOTED. WILL CONT TO MONITOR.
--- NOTE | 2019-05-20 04:05 | NUR ---
RESTING IN BED WITH EYES CLOSED. APPEARS TO BE SLEEPING. PULSE OX 97%
[2019-05-20 05:36] LABS: BASO % 0.2 % (0.0-1.0); EOS % 0.2 % (1.0-4.0); HEMATOCRIT 42.9 % (37.0-47.0); LYMPH # 0.6 10*3/uL (1.3-4.4); LYMPH % 11.9 % (27.0-41.0); MEAN CELL VOLUME 92.1 fl (81.0-99.0); MEAN CORPUSCULAR HGB CONC 32.6 g/dl (33.0-37.0); MONO # 0.1 10*3/uL (0.1-1.0); MONO % 1.7 % (3.0-9.0); NEUT # 4.6 10*3/uL (2.3-7.9); NEUT % 85.6 % (47.0-73.0); PLATELET COUNT AUTOMATED 252 10*3/uL (130-400); RED BLOOD COUNT 4.66 10*6/uL (4.10-5.10); WHITE BLOOD COUNT 5.4 10*3/uL (4.8-10.8)
[2019-05-20 05:46] LABS: BUN 15 mg/dl (7-24); CHLORIDE 111 mmol/L (98-107); PHOSPHOROUS 2.2 mg/dL (2.5-4.9); POTASSIUM 3.4 mmol/L (3.5-5.1); SODIUM 142 mmol/L (136-145)
[2019-05-20 05:56] LABS: INTERNATIONAL NORM RATIO 3.6 (2.0-3.5)
--- NOTE | 2019-05-20 06:07 | NUR ---
SLEEPING WITHOUT DISTRESS. CARDIZEM GTT AND IV FLUIDS CONT. 02 INTACT. CONDITION GUARDED.
--- NOTE | 2019-05-20 07:12 | NUR ---
Shift chart check completed.24 HR chart check completed.
--- NOTE | 2019-05-20 07:41 | NUR ---
ON ASSESSMENT PATIENT IS ALERT, ORIENTED. REMAINS ON CARDIZEM DRIP AT 5MG/HR. IVF AT 110/HR. OPTIFLOW ON AT 55L/MIN-95%. ABDOMEN SOFT WITH UMBILICAL HERNIA. NO PERIPHERAL EDEMA. NPO FOR CTA WHICH SHE HAS HAD LONG PREP FOR ALLERGY TO IVP DYE.
--- NOTE | 2019-05-20 08:34 | NUR ---
PT ACCOMPANIED TO RADIOLOGY FOR CTA. TOLERATED WELL WITH NO REACTION TO CT CONTRAST. SITTING AT SIDE OF BED, OPTIFLOW ON AT 95%, PULSE OX IS 98%.
--- NOTE | 2019-05-20 09:22 | NUR ---
DR HENNING MADE AWARE OF CT RESULTS. NO NEW ORDERS.
--- NOTE | 2019-05-20 11:14 | NUR ---
IV FLUIDS PLACED ON HOLD DUE TO CT RESULTS, PENDING VISIT FROM ATTENDING PHYSICIAN. PATIENT SLEEPING EASILY ON HER LEFT SIDE. PULSE OX IS >95%
--- NOTE | 2019-05-20 12:57 | NUR ---
DR DOOLEY VISITED. REVIEWED CT SCAN AND MEDS.
--- NOTE | 2019-05-20 16:15 | NUR ---
PT STATES SHE IS UNABLE TO TOLERATE IV k+ ANY LONGER. IV SITE WAS CHANGED TO LARGER SITE AND SLOWED DOWN TO 25CC/HR BUT PT STILL STATES IT IS BURNING. DR DOOLEY NOTIFIED AND ORDER CHANGED TO PO K+.
--- NOTE | 2019-05-20 23:00 | NUR ---
FIO2 DECREASED FROM 70% TO 60% ON OPTI FLOW.
[2019-05-21] VITALS (8 sets, daily range): BP systolic 109–127; BP diastolic 70–85
--- NOTE | 2019-05-21 03:31 | NUR ---
LITER FLOW DECREASED FROM 50 L/M TO 45 L/M ON OPTI FLOW
[2019-05-21 05:10] LABS: BUN 21 mg/dl (7-24); CHLORIDE 110 mmol/L (98-107); CREATININE 1.06 mg/dL (0.55-1.02); POTASSIUM 3.4 mmol/L (3.5-5.1); SODIUM 141 mmol/L (136-145)
[2019-05-21 05:21] LABS: INTERNATIONAL NORM RATIO 4.6 (2.0-3.5)
--- NOTE | 2019-05-21 07:01 | NUR ---
Shift chart check completed.
--- NOTE | 2019-05-21 08:00 | NUR ---
OPTIFLOW DECREASED TO 50%/40L PULSE OX REMAINS 95%
--- NOTE | 2019-05-21 09:00 | NUR ---
PATIENT WANTED TO WAIT TO WASH UP
--- NOTE | 2019-05-21 09:00 | NUR ---
CHANGED TO HIGH FLOW NASAL CANNULA 8L SATS MAINTAINING 94%
--- NOTE | 2019-05-21 09:30 | NUR ---
CARDIZEM DRIP STOPPED
--- NOTE | 2019-05-21 10:34 | NUR ---
08:00 SPO2 96% VIA OPTI FLOW OF 60% AND 50 LPM. O2 TITRATED TO OPTI FLOW OF 50% WITH FLOW OF 40 LPM. SPO2 MAINTAINING 93%
--- NOTE | 2019-05-21 10:36 | NUR ---
09:00 SPO2 93% VIA OPTI FLOW OF 40% AND 40 LPM. O2 SETUP CHANGED TO 8 L HFNC. SPO2 MAINTING ST 93% RESPS REGUALR AND UNLABORED.
--- NOTE | 2019-05-21 10:42 | NUR ---
TYLENOL GIVEN FOR HEADACHE
--- NOTE | 2019-05-21 11:02 | NUR ---
SLEEPING WITH AT BEDSIDE - AFIB RATE IN THE 90'S
--- NOTE | 2019-05-21 12:16 | NUR ---
NO SIGNS OF HEADACHE - REMAINS SLEEPING PEACEFULLY
--- NOTE | 2019-05-21 18:24 | NUR ---
PT AGAIN REFUSED TO WASH UP SAYING THAT SHE WAS CONSTANTLY ON THE BSC "PEEING"
--- NOTE | 2019-05-21 20:00 | NUR ---
PATIENT LYING IN BED, WITH AT THE BEDSIDE. PATIENTS ONLY COMPLAINT IS THAT SHE IF URINATING ALOT SINCE SHE WAS GIVEN LASIX. PATIENT STATES SHE IS BREATHING BETTER AND IS HOPING TO GO HOME SO0N. PATIENT DENIES ANY NEEDS AT THIS TIME. PATIENT LEFT WITH CALL LIGHT IN REACH.
[2019-05-22] VITALS: BP 110/80
--- NOTE | 2019-05-22 03:14 | NUR ---
24 HR chart check completed.
[2019-05-22 04:00] VITALS: BP 120/86
[2019-05-22 04:54] LABS: HEMATOCRIT 47.5 % (37.0-47.0); HEMOGLOBIN 15.8 g/dl (12.0-16.0); MEAN CELL VOLUME 90.8 fl (81.0-99.0); MEAN CORPUSCULAR HGB 30.2 pg (27.0-31.0); MEAN CORPUSCULAR HGB CONC 33.3 g/dl (33.0-37.0); MEAN PLATELET VOLUME 9.9 fl (9.6-12.3); RED BLOOD COUNT 5.23 10*6/uL (4.10-5.10); RED CELL DISTRI WIDTH 13.2 % (0-14.5); WHITE BLOOD COUNT 17.7 10*3/uL (4.8-10.8)
[2019-05-22 05:11] LABS: BUN 22 mg/dl (7-24); CHLORIDE 107 mmol/L (98-107); CREATININE 1.03 mg/dL (0.55-1.02); PHOSPHOROUS 2.7 mg/dL (2.5-4.9); POTASSIUM 3.1 mmol/L (3.5-5.1); SODIUM 143 mmol/L (136-145)
[2019-05-22 05:26] LABS: INTERNATIONAL NORM RATIO 5.4 (2.0-3.5)
--- NOTE | 2019-05-22 05:30 | NUR ---
PATIENTS BLOOD GLUCOSE RECHECK WAS 128.
[2019-05-22 05:40] LABS: PLATELET COUNT AUTOMATED 334 10*3/uL (130-400)
[2019-05-22 05:46] LABS: ATYPICAL LYMPHS 2 % (0-0); TOTAL CELLS COUNTED 100 #CELLS
[2019-05-22 05:47] LABS: BURR CELLS FEW; PLATELET SUFFICIENCY NORMAL (NORMAL)
[2019-05-22 08:00] VITALS: BP 119/82
--- NOTE | 2019-05-22 08:00 | NUR ---
AWAKE, ALERT AND ORIENTED, PLEASANT, AMBULATES IN ROOM WITHIN LIMITS OF MONITOR CABLES, REMAISN IN AF WITH VR OF [id number] WITH ACTIVITY BUT RESOLVES UPON REST
[2019-05-22 12:00] VITALS: BP 119/90
--- NOTE | 2019-05-22 12:13 | NUR ---
SPO2 97% ON 6 L HFNC. O2 DECREASED TO 5 L HFNC. RN AWARE.
[2019-05-22 16:00] VITALS: BP 127/87
--- NOTE | 2019-05-22 16:12 | NUR ---
OLD HEP LOCKS SORE AND REMOVED, NEW IV SITE TO RAC
--- NOTE | 2019-05-22 18:35 | NUR ---
DR DOOLEY IN TO SEE PT
[2019-05-22 20:00] VITALS: BP 128/76
--- NOTE | 2019-05-22 20:37 | NUR ---
1930 RESTING IN BED TALKING WITH VISITOR. PULSE OX 93% ON HIGH FLOW NC AT 5L. HEP LOCK INTACT RAN. NO C/O'S VOICED AT PRESENT. DIURESING FROM EARLIER IV LASIX. MONITOR REMAINS A-FIB
--- NOTE | 2019-05-22 22:12 | NUR ---
UP IN CHAIR AT BEDSIDE. NO DISTRESS NOTED.
[2019-05-23] VITALS: BP 134/96
--- NOTE | 2019-05-23 02:22 | NUR ---
RESTING IN BED WITH EYES CLOSED. APPEARS TO BE SLEEPING.
[2019-05-23 04:00] VITALS: BP 146/94
[2019-05-23 04:41] LABS: INTERNATIONAL NORM RATIO 3.5 (2.0-3.5)
[2019-05-23 04:49] LABS: BUN 25 mg/dl (7-24); CHLORIDE 106 mmol/L (98-107); CREATININE 0.96 mg/dL (0.55-1.02); POTASSIUM 3.2 mmol/L (3.5-5.1); SODIUM 142 mmol/L (136-145)
--- NOTE | 2019-05-23 06:12 | NUR ---
MONITOR REMAINS A-FIB. HR ELEVATED WITH ANY ACTIVITY. IV LASIX GIVEN ORDERED. 02 INTACT. CONDITION GUARDED.
[2019-05-23 08:00] VITALS: BP 130/74
--- NOTE | 2019-05-23 08:30 | NUR ---
DR ROCHE CALLED RETO HEART RATE 120-130 NEW ORDERS RECIEVED ALSO DR DOOLEY CALLED FOR NICOTINE PATCH AND XANAX ORDERS RECIEVED
--- NOTE | 2019-05-23 09:52 | NUR ---
08:00 O2 DECREASED TO 4 L HFNC SPO2 95 ON 5 L HFNC
--- NOTE | 2019-05-23 11:00 | NUR ---
PT RESTING QUIETLY, FEELS MUCH BETTER AFTER XANAX, HEART RATE 90-108 AFTER NEW MEDS, REMAINS AT BEDSIDE
[2019-05-23 12:00] VITALS: BP 137/84
[2019-05-23 16:00] VITALS: BP 129/89
--- NOTE | 2019-05-23 19:56 | NUR ---
DR. ROCHE IN TO SEE PT. ORDERS RECEIVED.
[2019-05-23 20:00] VITALS: BP 122/82
--- NOTE | 2019-05-23 20:19 | NUR ---
ABOVE NOTE SHOULD READ DR. HONEYCUTT IN TO SEE PT, 2000 PT RESTING IN BED TALKING WITH VISITOR. MONITOR REMAINS A-FIB IN THE 80'S AND INCREASES TO THE LOW 100'S WITH ACTIVITY. HEP LOCK INTACT MAYURI. PT IS ALERT AND ORIENTED. NO DISTRESS NOTED. PULSE OX 96% ON 4L. DISCUSSED CARDIOVERSION WITH PT AND . DR. HONEYCUTT STATES THAT HE IS NOT PLANNING ON THIS AT PRESENT. PT MADE TELEMETRY. 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
--- NOTE | 2019-05-23 21:36 | NUR ---
DR. DOOLEY NOTIFIED OF PT BEING MADE IMC. OK WITH HIM.
--- NOTE | 2019-05-23 22:10 | NUR ---
SITTING UP ON THE SIDE OF THE BED USING IPAD. REMAINS WITHOUT C/O'S.
[2019-05-24] VITALS: BP 113/62
--- NOTE | 2019-05-24 00:09 | NUR ---
RESTING IN BED WITH EYES CLOSED. APPEARS TO BE SLEEPING.
[2019-05-24 05:51] LABS: BUN 31 mg/dl (7-24); CHLORIDE 104 mmol/L (98-107); CREATININE 1.02 mg/dL (0.55-1.02); POTASSIUM 2.9 mmol/L (3.5-5.1); SODIUM 142 mmol/L (136-145)
[2019-05-24 06:03] LABS: HEMOGLOBIN 16.3 g/dl (12.0-16.0); MEAN CELL VOLUME 90.1 fl (81.0-99.0); MEAN CORPUSCULAR HGB CONC 33.3 g/dl (33.0-37.0); MEAN PLATELET VOLUME 9.9 fl (9.6-12.3); PLATELET COUNT AUTOMATED 308 10*3/uL (130-400); RED BLOOD COUNT 5.44 10*6/uL (4.10-5.10); RED CELL DISTRI WIDTH 13.2 % (0-14.5); WHITE BLOOD COUNT 14.3 10*3/uL (4.8-10.8)
--- NOTE | 2019-05-24 06:08 | NUR ---
SLEPT WELL THIS SHIFT. MONITOR REMAINS A-FIB. 02 INTACT. NO DISTRESS NOTED. CONDITION GUARDED.
[2019-05-24 06:27] LABS: PLATELET SUFFICIENCY NORMAL (NORMAL); TOTAL CELLS COUNTED 100 #CELLS
[2019-05-24 06:39] LABS: INTERNATIONAL NORM RATIO 2.9 (2.0-3.5)
--- NOTE | 2019-05-24 07:26 | NUR ---
DR DERAS UPDATED OF POTASSIUM 2.9
[2019-05-24 08:00] VITALS: BP 130/78
--- NOTE | 2019-05-24 08:53 | NUR ---
TO RADIOLOGY FOR CXR [facility]OO [facility]
--- NOTE | 2019-05-24 09:00 | NUR ---
Doctor Of Naturopathic Medicine in to see patient. No new needs or request at this time. She denies any home needs. When medically stable she will be discharged to home. Family is at the bedside. Dr. Garcia is changing her cardiac medications. Heart rate remains elevated.
--- NOTE | 2019-05-24 09:06 | NUR ---
@ 1931 PT WENT FOR CHEST X-RAY, ANTIBIOTIC STOPPED FOR TRANSPORT [facility]SON[facility]
--- NOTE | 2019-05-24 09:13 | NUR ---
@0900 PT RETURNED FROM X-RAY, ANTIBIOTIC WAS RESTARTED KHUSHBOO RANDOLPH
--- NOTE | 2019-05-24 09:59 | NUR ---
08:30 O2 CHANGED TO 4 L NC SPO2 96%
--- NOTE | 2019-05-24 10:30 | NUR ---
HERE PT IS RESTING COMFORTABLY [facility]HEL[facility] SPIGGY[facility]
[2019-05-24 11:53] VITALS: BP 127/84
--- NOTE | 2019-05-24 12:12 | NUR ---
AWAITING POTASSIUM REPLACEMENT ORDERS
--- NOTE | 2019-05-24 12:52 | NUR ---
PT AWAKE IN BED [facility]OO MICHELLE SPNR[facility]
--- NOTE | 2019-05-24 13:42 | NUR ---
GIVEN ORAL POTASSIUM FOR LOW LEVEL KHUSHBOO RANDOLPH
[2019-05-24 16:00] VITALS: BP 116/89
[2019-05-24 20:00] VITALS: BP 134/76
--- NOTE | 2019-05-24 20:28 | NUR ---
24 HR chart check completed.
--- NOTE | 2019-05-24 21:05 | NUR ---
DR HONEYCUTT CONTACTED REGARDING HR 160-180'S. NEW ORDERS RECEIVED
--- NOTE | 2019-05-24 21:30 | NUR ---
RESTING IN BED. RESPIRATIONS EASY. LUNGS DIMINISHED WITH POOR AIR MOVEMENT. PULSE OX 96% 3L, HUMIDIFICATION APPLIED. HR CURRENTLY 120 AND IRREGULAR. CALL LIGHT WITHIN REACH. NO VOICED COMPLAINTS. WILL CONTINUE TO MONITOR
--- NOTE | 2019-05-24 23:00 | NUR ---
HR 100-120.
[2019-05-25] VITALS: BP 124/86; BP 124/90
--- NOTE | 2019-05-25 | NUR ---
SLEEPING. NO DISTRESS NOTED. RESPIRATIONS EASY
--- NOTE | 2019-05-25 06:00 | NUR ---
AWAKE, SITTING AT BEDSIDE WITH NO DISTRESS NOTED. RESPIRATIONS EASY. O2 IN USE. REMAINS A-FIB WITH HR 80-90'S. CALL LIGHT WITHIN REACH. NO VOICED COMPLAINTS THIS SHIFT
[2019-05-25 06:35] LABS: HEMATOCRIT 49.3 % (37.0-47.0); HEMOGLOBIN 16.4 g/dl (12.0-16.0); MEAN CELL VOLUME 90.6 fl (81.0-99.0); MEAN CORPUSCULAR HGB 30.1 pg (27.0-31.0); MEAN CORPUSCULAR HGB CONC 33.3 g/dl (33.0-37.0); PLATELET COUNT AUTOMATED 310 10*3/uL (130-400); RED BLOOD COUNT 5.44 10*6/uL (4.10-5.10); RED CELL DISTRI WIDTH 13.3 % (0-14.5); WHITE BLOOD COUNT 16.6 10*3/uL (4.8-10.8)
[2019-05-25 06:56] LABS: CHLORIDE 103 mmol/L (98-107)
[2019-05-25 07:09] LABS: ALKALINE PHOSPHATASE 96 U/L (45-117); CREATININE 1.05 mg/dL (0.55-1.02); PHOSPHOROUS 3.5 mg/dL (2.5-4.9); SGOT/AST 10 IU/L (3-35); SGPT/ALT 27 U/L (12-78); TOTAL PROTEIN 6.5 gm/dL (6.4-8.2)
[2019-05-25 07:19] LABS: BUN 40 mg/dl (7-24); SODIUM 138 mmol/L (136-145)
[2019-05-25 07:21] LABS: INTERNATIONAL NORM RATIO 2.4 (2.0-3.5)
[2019-05-25 07:22] LABS: POTASSIUM 3.9 mmol/L (3.5-5.1)
[2019-05-25 07:31] LABS: PLASMA CELL 1 % (0-0); PLATELET SUFFICIENCY NORMAL (NORMAL); POLYCHROMASIA SLIGHT; ROULEAUX SLIGHT; TOTAL CELLS COUNTED 100 #CELLS
[2019-05-25 08:00] VITALS: BP 134/74
--- NOTE | 2019-05-25 09:00 | NUR ---
Chief Gauger in to see patient. No new needs or request at this time. She denies any home needs. When medically stable she will be discharged to home. Family is at the bedside. Discussed discharge planning with Dr. Amado. Patient needs one more day. Dr. Ayoub consulted, if fluid on chest x-ray doesn't resolve with diuresis then possible thoracentesis. Dr. Matos consulted and changing cardiac medications. Heart rate and blood pressure are better.
[2019-05-25] MEDS ORDERED: DILTIAZEM 24HR180 MG PO (10:09)
[2019-05-25] MEDS ORDERED: DIGOXIN250 MCG PO (10:11)
--- NOTE | 2019-05-25 10:50 | NUR ---
PATIENT TO BE DISCHARGED TO HOME.
--- NOTE | 2019-05-25 12:53 | NUR ---
PATIENT DISCHARGED HOME WITH BELONGINGS.
== END 2019-05-25 12:53 | disposition home or self-care (01) | DRG 291 ==
LOC: ICCU 14:48 → 4E 14:48 → ICCU 15:08 → 4E 05-24 07:37
PROVIDERS: Internal Medicine; Internal Medicine Nephrology; ADMIT Internal Medicine
DX: I13.0 Hypertensive heart and chronic kidney disease with heart failure and stage 1 through stage 4 chronic kidney disease, or unspecified chronic kidney disease (principal); J18.9 Pneumonia, unspecified organism; J96.01 Acute respiratory failure with hypoxia; I50.21 Acute systolic (congestive) heart failure; I48.19 Other persistent atrial fibrillation; J44.1 Chronic obstructive pulmonary disease with (acute) exacerbation; J44.0 Chronic obstructive pulmonary disease with (acute) lower respiratory infection; E87.6 Hypokalemia; I95.1 Orthostatic hypotension; N28.9 Disorder of kidney and ureter, unspecified; N18.3 Chronic kidney disease, stage 3 (moderate); D72.818 Other decreased white blood cell count; D75.1 Secondary polycythemia; F17.210 Nicotine dependence, cigarettes, uncomplicated; I71.2 Thoracic aortic aneurysm, without rupture; E83.39 Other disorders of phosphorus metabolism; R73.9 Hyperglycemia, unspecified; D72.810 Lymphocytopenia; D72.821 Monocytosis (symptomatic); I27.20 Pulmonary hypertension, unspecified; I08.0 Rheumatic disorders of both mitral and aortic valves; E66.01 Morbid (severe) obesity due to excess calories; T45.515A Adverse effect of anticoagulants, initial encounter; Y92.89 Other specified places as the place of occurrence of the external cause; Z79.01 Long term (current) use of anticoagulants; Z90.49 Acquired absence of other specified parts of digestive tract; Z90.710 Acquired absence of both cervix and uterus; Z82.49 Family history of ischemic heart disease and other diseases of the circulatory system; Z83.2 Family history of diseases of the blood and blood-forming organs and certain disorders involving the immune mechanism; Z88.8 Allergy status to other drugs, medicaments and biological substances; Z91.041 Radiographic dye allergy status; Z91.09 Other allergy status, other than to drugs and biological substances; Z79.899 Other long term (current) drug therapy; Z79.82 Long term (current) use of aspirin; Z85.89 Personal history of malignant neoplasm of other organs and systems; Z68.26 Body mass index [BMI] 26.0-26.9, adult

== ENCOUNTER → 2019-06-02 | Outpatient (CLI) | payer OTHER ==
[~2019-06-02] MED LIST changes: +AMLODIPINE BESY10 MG PO; +ATORVASTATIN CA40 M1 PO; +COUMADIN5 M2 PO; +Coumadin5 MG PO; +DIGOXIN250 MCG PO; +HYDROCHLOROTHIA25 M1 PO
[2019-06-02 09:59] LABS: BUN 24 mg/dl (7-24); CHLORIDE 104 mmol/L (98-107); CREATININE 0.97 mg/dL (0.55-1.02); POTASSIUM 3.5 mmol/L (3.5-5.1); SODIUM 140 mmol/L (136-145)
[2019-06-02 10:13] LABS: DIGOXIN 1.46 ng/ml (0.8-2.0)
== END | disposition home or self-care (01) ==
LOC: LAB 08:52
PROVIDERS: Internal Medicine
DX: I48.91 Unspecified atrial fibrillation (principal); E10.22 Type 1 diabetes mellitus with diabetic chronic kidney disease; N18.9 Chronic kidney disease, unspecified

== ENCOUNTER → 2019-07-08 | Outpatient (CLI) | payer MEDICARE | END | disposition home or self-care (01) | LOC: RESCLI 01:23 | DX: I48.21 Permanent atrial fibrillation (principal); E78.5 Hyperlipidemia, unspecified; I10 Essential (primary) hypertension; E55.9 Vitamin D deficiency, unspecified; Z76.89 Persons encountering health services in other specified circumstances; Z79.899 Other long term (current) drug therapy; Z90.49 Acquired absence of other specified parts of digestive tract; Z90.710 Acquired absence of both cervix and uterus; Z90.89 Acquired absence of other organs ==

== ENCOUNTER → 2019-08-12 | Outpatient (CLI) | payer MEDICARE | END | disposition home or self-care (01) | LOC: RESCLI 00:38 | DX: I12.9 Hypertensive chronic kidney disease with stage 1 through stage 4 chronic kidney disease, or unspecified chronic kidney disease (principal); N18.3 Chronic kidney disease, stage 3 (moderate); I48.21 Permanent atrial fibrillation; E78.5 Hyperlipidemia, unspecified; E55.9 Vitamin D deficiency, unspecified; Z90.49 Acquired absence of other specified parts of digestive tract; Z98.890 Other specified postprocedural states; Z87.891 Personal history of nicotine dependence; Z79.82 Long term (current) use of aspirin; Z79.899 Other long term (current) drug therapy ==

== ENCOUNTER → 2020-03-01 | Outpatient (CLI) | payer MEDICARE | END | disposition home or self-care (01) | LOC: MAMMO 13:30 | PROVIDERS: ATTEND Internal Medicine | DX: N64.9 Disorder of breast, unspecified (principal) ==

== ENCOUNTER → 2020-07-18 | Outpatient (CLI) | payer MEDICARE | END | disposition home or self-care (01) | LOC: RAD 15:01 | PROVIDERS: ATTEND Internal Medicine | DX: M25.531 Pain in right wrist (principal); M25.511 Pain in right shoulder; M25.521 Pain in right elbow ==

== ENCOUNTER → 2020-10-05 | Outpatient (CLI) | payer OTHER | END | disposition home or self-care (01) | LOC: US 14:12 | PROVIDERS: ATTEND Internal Medicine Nephrology | DX: N28.1 Cyst of kidney, acquired (principal); I71.4 Abdominal aortic aneurysm, without rupture; I74.11 Embolism and thrombosis of thoracic aorta ==

== ENCOUNTER 2020-10-09 12:21 | Emergency (ER) | payer OTHER ==
[~2020-10-09] VITALS: Ht 165.1 cm; Wt 65.8 kg
[2020-10-09 13:33] LABS: BASO # 0.1 10*3/uL (0.0-0.1); BASO % 1.1 % (0.0-1.0); EOS # 0.3 10*3/uL (0.0-0.4); EOS % 2.9 % (1.0-4.0); HEMATOCRIT 52.8 % (37.0-47.0); LYMPH # 2.4 10*3/uL (1.3-4.4); MEAN CELL VOLUME 95.3 fl (81.0-99.0); MEAN CORPUSCULAR HGB 31.6 pg (27.0-31.0); MEAN CORPUSCULAR HGB CONC 33.1 g/dl (33.0-37.0); MEAN PLATELET VOLUME 10.1 fl (9.6-12.3); MONO # 0.9 10*3/uL (0.1-1.0); MONO % 8.8 % (3.0-9.0); NEUT # 6.2 10*3/uL (2.3-7.9); NEUT % 62.6 % (47.0-73.0); PLATELET COUNT AUTOMATED 247 10*3/uL (130-400); RED BLOOD COUNT 5.54 10*6/uL (4.10-5.10); RED CELL DISTRI WIDTH 13.4 % (0-14.5); WHITE BLOOD COUNT 9.8 10*3/uL (4.8-10.8)
[2020-10-09 13:45] LABS: ACT PARTIAL THROMBO TIME 30.4 SECONDS (20.0-32.1); INTERNATIONAL NORM RATIO 1.5 (2.0-3.5)
[2020-10-09 13:49] LABS: ALBUMIN 3.7 gm/dl (3.1-4.5); ALKALINE PHOSPHATASE 111 U/L (45-117); BUN 20 mg/dl (7-24); CHLORIDE 106 mmol/L (98-107); CREATININE 1.03 mg/dL (0.55-1.02); POTASSIUM 3.9 mmol/L (3.5-5.1); SGOT/AST 15 IU/L (3-35); SGPT/ALT 32 U/L (12-78); SODIUM 140 mmol/L (136-145); TOTAL PROTEIN 7.5 gm/dL (6.4-8.2)
== END 2020-10-09 16:24 | disposition home or self-care (01) ==
LOC: ED 12:21
PROVIDERS: Emergency Medicine
DX: I71.4 Abdominal aortic aneurysm, without rupture (principal); Z98.890 Other specified postprocedural states; Z90.49 Acquired absence of other specified parts of digestive tract; Z90.710 Acquired absence of both cervix and uterus; Z79.899 Other long term (current) drug therapy; Z79.01 Long term (current) use of anticoagulants; Z79.82 Long term (current) use of aspirin

== ENCOUNTER → 2021-04-03 | Outpatient (CLI) | payer OTHER | END | disposition home or self-care (01) | LOC: RAD 08:37 | PROVIDERS: ATTEND Internal Medicine Nephrology | DX: M47.817 Spondylosis without myelopathy or radiculopathy, lumbosacral region (principal); M51.36 Other intervertebral disc degeneration, lumbar region; E85.89 Other amyloidosis ==

== ENCOUNTER 2021-04-28 14:36 | Emergency (ER) | payer OTHER ==
[~2021-04-28] VITALS: Ht 162.5 cm; Wt 65.8 kg
[2021-04-28 15:49] LABS: BASO # 0.1 10*3/uL (0.0-0.1); BASO % 1.1 % (0.0-1.0); EOS # 0.1 10*3/uL (0.0-0.4); EOS % 1.3 % (1.0-4.0); HEMATOCRIT 50.4 % (37.0-47.0); LYMPH # 1.8 10*3/uL (1.3-4.4); LYMPH % 19.3 % (27.0-41.0); MEAN CELL VOLUME 91.5 fl (81.0-99.0); MEAN CORPUSCULAR HGB 31.2 pg (27.0-31.0); MEAN CORPUSCULAR HGB CONC 34.1 g/dl (33.0-37.0); MEAN PLATELET VOLUME 10.3 fl (9.6-12.3); MONO # 0.7 10*3/uL (0.1-1.0); MONO % 8.1 % (3.0-9.0); NEUT # 6.3 10*3/uL (2.3-7.9); NEUT % 69.6 % (47.0-73.0); PLATELET COUNT AUTOMATED 187 10*3/uL (130-400); RED BLOOD COUNT 5.51 10*6/uL (4.10-5.10); WHITE BLOOD COUNT 9.1 10*3/uL (4.8-10.8)
[2021-04-28 16:00] LABS: ACT PARTIAL THROMBO TIME 34.1 SECONDS (20.0-32.1); INTERNATIONAL NORM RATIO 2.1 (2.0-3.5)
[2021-04-28 16:07] LABS: ALBUMIN 3.4 gm/dl (3.1-4.5); ALKALINE PHOSPHATASE 96 U/L (45-117); BUN 23 mg/dl (7-24); CHLORIDE 107 mmol/L (98-107); CREATININE 0.95 mg/dL (0.55-1.02); POTASSIUM 3.3 mmol/L (3.5-5.1); SGOT/AST 19 IU/L (3-35); SGPT/ALT 29 U/L (12-78); SODIUM 140 mmol/L (136-145); TOTAL PROTEIN 7.1 gm/dL (6.4-8.2)
[2021-04-28 16:08] LABS: TROPONIN I < 0.015 ng/ml (<0.045)
== END 2021-04-29 01:30 | disposition short-term general hospital (02) ==
LOC: ED 14:36
PROVIDERS: Physician Assistant
DX: I71.9 Aortic aneurysm of unspecified site, without rupture (principal); J18.9 Pneumonia, unspecified organism; R04.2 Hemoptysis; J44.9 Chronic obstructive pulmonary disease, unspecified; I10 Essential (primary) hypertension

== ENCOUNTER → 2021-08-13 | Outpatient (CLI) | payer OTHER | END | disposition home or self-care (01) | LOC: US 08:08 | PROVIDERS: ATTEND Internal Medicine | DX: L98.9 Disorder of the skin and subcutaneous tissue, unspecified (principal) ==

== ENCOUNTER → 2021-10-02 | Outpatient (CLI) | payer OTHER | END | disposition home or self-care (01) | LOC: US 13:45 | PROVIDERS: ATTEND Internal Medicine Nephrology | DX: I71.4 Abdominal aortic aneurysm, without rupture (principal); N18.31 Chronic kidney disease, stage 3a ==

== ENCOUNTER → 2021-10-15 | Outpatient (CLI) | payer OTHER | END | disposition home or self-care (01) | LOC: MAMMO 08:23 | PROVIDERS: ATTEND Internal Medicine | DX: Z12.31 Encounter for screening mammogram for malignant neoplasm of breast (principal); M81.0 Age-related osteoporosis without current pathological fracture ==

== ENCOUNTER → 2021-10-18 | Outpatient (CLI) | payer OTHER ==
[~2021-10-18] MED LIST changes: +PERCOCET 5-3251 EACH PO
[2021-10-18 10:44] LABS: ALKALINE PHOSPHATASE 109 U/L (45-117); BUN 27 mg/dl (7-24); CHLORIDE 107 mmol/L (98-107); CREATININE 0.93 mg/dL (0.55-1.02); POTASSIUM 3.2 mmol/L (3.5-5.1); SGOT/AST 31 IU/L (3-35); SGPT/ALT 39 U/L (12-78); SODIUM 143 mmol/L (136-145)
== END | disposition home or self-care (01) ==
LOC: LAB 09:44
PROVIDERS: ATTEND Internal Medicine Nephrology
DX: E83.52 Hypercalcemia (principal)

== ENCOUNTER → 2021-10-22 | Day surgery (SDC) | payer OTHER ==
[~2021-10-22] VITALS: Ht 167.6 cm; Wt 58.5 kg
[2021-10-22 08:15] VITALS: BP 139/91
[2021-10-22 10:20] VITALS: BP 140/80
[2021-10-22 10:35] VITALS: BP 115/75
[2021-10-22 10:50] VITALS: BP 132/87
[2021-10-22 11:01] VITALS: BP 136/79
== END | disposition home or self-care (01) ==
LOC: SDC 10-18 08:00
PROVIDERS: ATTEND Surgery
DX: L72.0 Epidermal cyst (principal); J44.9 Chronic obstructive pulmonary disease, unspecified; F41.9 Anxiety disorder, unspecified; M19.90 Unspecified osteoarthritis, unspecified site; F32.9 Major depressive disorder, single episode, unspecified; I48.91 Unspecified atrial fibrillation; I12.9 Hypertensive chronic kidney disease with stage 1 through stage 4 chronic kidney disease, or unspecified chronic kidney disease; N18.30 Chronic kidney disease, stage 3 unspecified; Z79.899 Other long term (current) drug therapy